=== PATIENT | male | born 1990 | race American Indian/Alaskan Native ===

== ENCOUNTER 2017-11-06 10:58 | Emergency (ER) | payer SELFPAY ==
[2017-11-06 11:10] VITALS: BP 151/96
[2017-11-06] MEDS ORDERED: FLEXERIL PO ONE (13:38)
[2017-11-06] MEDS ORDERED: TORADOL IM ONE (13:38)
--- NOTE | 2017-11-06 13:44 | Emergency Department Report ---
ED Neck Pain/Injury HPI - General Chief Complaint: Neck Pain/Injury Stated Complaint: CROOK IN NECK Time Seen by Provider: 11/06/17 13:38 Mode of arrival: Ambulatory Limitations: No Limitations - History of Present Illness Initial Comments: Patient reports right side neck pain that started upon awakening this am. He denies any recent injuries MD Complaint: neck pain Onset/Timin -: hour(s) Place: home Radiation: right lateral Severity: severe Severity scale (0 -10): 10 Quality: sharp Consistency: constant Improves With: none Worsens With: movement of neck Context: unknown Associated Symptoms: none. denies: headache, fever, numbness, tingling, weakness, vertigo, difficulty walking, swollen glands, difficulty swallowing, nausea, vomiting Treatments Prior to Arrival: heat therapy - Related Data Previous Rx's Medication Instructions Recorded Last Taken Type Cyclobenzaprine [Flexeril] 10 mg PO TID PRN #30 tablet 11/06/17 Unknown Rx Diclofenac Sodium 75 mg PO BID #20 tablet. 11/06/17 Unknown Rx ED Review of Systems ROS: Stated complaint: CROOK IN NECK Other details as noted in HPI Constitutional: denies: chills, fever Eyes: denies: eye pain, eye discharge, vision change ENT: denies: ear pain, throat pain Respiratory: denies: cough, shortness of breath, SOB with exertion, SOB at rest , stridor, wheezing Cardiovascular: denies: chest pain, palpitations Endocrine: no symptoms reported Gastrointestinal: denies: abdominal pain, nausea, vomiting, diarrhea Genitourinary: denies: urgency, dysuria Musculoskeletal: arthralgia (neck). denies: back pain, joint swelling Skin: denies: rash, lesions Neurological: denies: headache, weakness, paresthesias Psychiatric: denies: anxiety, depression Hematological/Lymphatic: denies: easy bleeding, easy bruising ED Past Medical Hx - Medications Home Medications: Home Medications Medication Instructions Recorded Confirmed Last Taken Type Cyclobenzaprine [Flexeril] 10 mg PO TID PRN #30 tablet 11/06/17 Unknown Rx Diclofenac Sodium 75 mg PO BID #20 tablet. 11/06/17 Unknown Rx ED Physical Exam - General Limitations: No Limitations General appearance: alert, in no apparent distress - Head Head exam: Present: atraumatic, normocephalic - Eye Eye exam: Present: normal appearance, PERRL Pupils: Present: normal accommodation - ENT ENT exam: Present: normal exam, normal orophraynx, mucous membranes moist. Absent: mucous membranes dry - Neck Neck exam: Present: tenderness (right sternocleidomastoid ), full ROM (limited on the right). Absent: meningismus, lymphadenopathy, thyromegaly - Respiratory Respiratory exam: Present: normal lung sounds bilaterally. Absent: respiratory distress, wheezes, rales, rhonchi, stridor, chest wall tenderness, accessory muscle use, decreased breath sounds, prolonged expiratory - Cardiovascular Cardiovascular Exam: Present: regular rate, normal rhythm, normal heart sounds. Absent: bradycardia, tachycardia, irregular rhythm, systolic murmur, diastolic murmur, rubs, gallop - Extremities Exam Extremities exam: Present: normal inspection, full ROM, normal capillary refill. Absent: tenderness, pedal edema, joint swelling - Back Exam Back exam: Present: normal inspection, full ROM. Absent: tenderness, CVA tenderness (R), CVA tenderness (L), muscle spasm, paraspinal tenderness, vertebral tenderness - Neurological Exam Neurological exam: Present: alert, oriented X3, CN II-XII intact, normal gait, reflexes normal. Absent: motor sensory deficit - Psychiatric Psychiatric exam: Present: normal affect, normal mood - Skin Skin exam: Present: warm, dry, intact, normal color. Absent: rash ED Course Vital Signs 11/06/17 11:08 Temperature 97.6 F Pulse Rate 87 Blood Pressure 151/96 O2 Sat by Pulse 98 Oximetry - Reevaluation(s) Reevaluation #2: 11/06/17 13:41 analgesics ordered ED Medical Decision Making - Lab Data Vital Signs 11/06/17 11:08 Temperature 97.6 F Pulse Rate 87 Blood Pressure 151/96 O2 Sat by Pulse 98 Oximetry - Medical Decision Making During the course of ED, analgesic and cyclobenzaprine ordered. Patient was sent home with prescriptions Diclofenac Sodium and Flexeril, instructed to apply warm heat to the area for 20 minutes every hour. Also instructed to follow up with his PCP this week. He verbalized understanding - Differential Diagnosis Torticollis, Muscle Spasm, Alessandro Trauma Critical care attestation.: If time is entered above; I have spent that time in minutes in the direct care of this critically ill patient, excluding procedure time. ED Disposition Clinical Impression: Torticollis, acute Disposition: DC-01 TO HOME OR SELFCARE Is pt being admited?: No Does the pt Need Aspirin: No Condition: Stable Instructions: Spasmodic Torticollis (ED) Additional Instructions: Take medication as directed. No drinking or driving while taking medication. Follow up with your PCP this week. Return back to the ED for worsening symptoms or concerns Prescriptions: Cyclobenzaprine [Flexeril] 10 mg PO TID PRN #30 tablet PRN Reason: Muscle Spasm Diclofenac Sodium 75 mg PO BID #20 tablet. Referrals: [facility] [Outside] - 3-5 Days Forms: Work/School Release Form(ED) Time of Disposition: 13:52
== END 2017-11-06 14:16 | disposition home or self-care (01) ==
LOC: EDSEX → ED 10:58
DX: M43.6 Torticollis (principal)
CPT/HCPCS: 96372; 99282; J1885